=== PATIENT | male | born 1985 | race Two or more races ===

== ENCOUNTER 2021-03-29 15:43 | Emergency (ER) | payer MEDICAID ==
[~2021-03-29] VITALS: Ht 165.1 cm; Wt 73.0 kg
[2021-03-29] MEDS ORDERED: IBUPROFEN 600MG TABLET PO ONE (16:30)
[2021-03-29] MEDS ORDERED: IBUP-2028 MT (17:24)
[2021-03-29 17:34] VITALS: BP 141/91
== END 2021-03-29 17:38 | disposition home or self-care (01) ==
LOC: ER 15:43
DX: R07.89 Other chest pain (principal); Z98.890 Other specified postprocedural states
CPT/HCPCS: 71045; 93005; 99283

== ENCOUNTER 2021-06-03 10:05 | Emergency (ER) | payer MEDICAID ==
[~2021-06-03] VITALS: Ht 175.3 cm; Wt 75.0 kg
[~2021-06-03 10:05] MED LIST: IBUP-2028 MT
[2021-06-03 10:50] LABS: BASOPHILS % 0.2 % (0.0-2.0); HEMATOCRIT. 44.5 % (42.0-52.0); HEMOGLOBIN. 14.8 g/dL (14.0-18.0); LYMPHOCYTES % 10.5 % (20.0-50.0); MEAN CORPUSCULAR HEMOGLOBIN 32.2 pg (28.0-32.0); MEAN CORPUSCULAR VOLUME 96.9 fL (80.0-94.0); MEAN PLATELET VOLUME 7.7 fl (7.4-10.4); MONOCYTES % 5.6 % (2.0-8.0); NEUTROPHILS % 82.7 % (40.0-76.0); PLATELET 397 x1000/uL (130-400); RED BLOOD CELL COUNT 4.59 mill/uL (4.7-6.1); RED CELL DISTRIBUTION WIDTH 15.1 % (11.6-14.6)
[2021-06-03 10:57] LABS: CHLORIDE 104 mEq/L (98-107)
[2021-06-03 12:37] LABS: CHLORIDE 104 mEq/L (98-107)
[2021-06-03 13:24] VITALS: BP 138/92
== END 2021-06-03 13:33 | disposition home or self-care (01) ==
LOC: ER 10:05
DX: Z13.9 Encounter for screening, unspecified (principal); I49.9 Cardiac arrhythmia, unspecified; Z98.890 Other specified postprocedural states
CPT/HCPCS: 36415; 71045; 80048; 80053; 85025; 99284

== ENCOUNTER 2022-06-19 20:49 | Emergency (ER) | payer MEDICAID ==
[~2022-06-19] VITALS: Ht 165.1 cm; Wt 64.0 kg
[2022-06-19 20:58] VITALS: BP 154/103
== END 2022-06-20 00:18 | disposition left against medical advice (07) ==
LOC: ER 20:49
DX: Z53.21 Procedure and treatment not carried out due to patient leaving prior to being seen by health care provider (principal)
CPT/HCPCS: 93005

== ENCOUNTER 2023-01-02 17:01 | Emergency (ER) | payer MEDICAID ==
[~2023-01-02] VITALS: Ht 165.1 cm; Wt 64.0 kg
[2023-01-02 17:14] VITALS: O2SAT 99
[2023-01-02] MEDS ORDERED: METOCLOPRAMIDE HCL 10MG/2ML VIAL IV ONE (18:15)
[2023-01-02] MEDS ORDERED: SODIUM CHLORIDE 0.9% 1,000 ML IV ONE (18:15)
[2023-01-02] MEDS ORDERED: DIPHENHYDRAMINE 50MG/ML VIAL IV ONE (18:15)
[2023-01-02] MEDS ORDERED: KETOROLAC 15MG/ML VIAL IV ONE (18:15)
[2023-01-02] MEDS ORDERED: IBUP-2028 MT (20:12)
[2023-01-02] MEDS ORDERED: METOCLOPRAMIDE HCL 10MG/2ML VIAL IV NR (20:15)
[2023-01-02] MEDS ORDERED: KETOROLAC 15MG/ML VIAL IV NR (20:15)
[2023-01-02] MEDS ORDERED: DIPHENHYDRAMINE 50MG/ML VIAL IV NR (20:30)
[2023-01-02 22:25] VITALS: BP 125/71; PULSE 83; RESP 18; TEMP 98.7
== END 2023-01-02 22:38 | disposition home or self-care (01) ==
LOC: ER 17:01
DX: G43.909 Migraine, unspecified, not intractable, without status migrainosus (principal)
CPT/HCPCS: 96361; 96374; 96375; 99284; J1200; J1885; J2765; J7030; Z7610 ×2

== ENCOUNTER 2023-02-06 19:12 | Emergency (ER) | payer MEDICAID ==
[~2023-02-06] VITALS: Ht 165.1 cm; Wt 59.0 kg
[2023-02-06 20:34] VITALS: BP 153/109; PULSE 137; RESP 20; O2SAT 100
[2023-02-06 23:00] VITALS: TEMP 98.9
[2023-02-06] MEDS ORDERED: ACETAMINOPHEN 325MG TABLET PO ONE (23:00)
[2023-02-06] MEDS ORDERED: AZITHROMYCIN 500MG/250ML 250 ML IV ONE (23:30)
== END 2023-02-07 01:42 | disposition home or self-care (01) ==
LOC: ER 19:12
DX: R51.9 Headache, unspecified (principal)
CPT/HCPCS: 99284; J0456